=== PATIENT | female | born 1940 | race Caucasian/White ===

== ENCOUNTER 2018-02-11 06:49 | Inpatient (IN) | payer OTHER ==
[2018-02-11] MEDS ORDERED: GABAPENTIN 300 MG CAP PO ONE (07:22)
[2018-02-11] MEDS ORDERED: ceFAZolin 2 GM/DEXTROSE 100 ML IV ONE (07:22)
[2018-02-11] MEDS ORDERED: ACETAMINOPHEN 500 MG TAB PO ONE (07:22)
[2018-02-11] MEDS ORDERED: LIDOCAINE 1% 2 ML INJ ID PRN (07:23)
[2018-02-11] MEDS ORDERED: LR 1,000 ML IV ONE (07:23)
[2018-02-11] MEDS ORDERED: THROMBIN (BOVINE) 5,000 UNIT VIAL TP ONE (07:24)
[2018-02-11] MEDS ORDERED: CHLORHEXIDINE GLUC HIBICLENS 118 ML BTL TP ONE (07:24)
[2018-02-11] MEDS ORDERED: BUPIVACAINE 0.25% 30 ML SDV ONE (07:24)
[2018-02-11] MEDS ORDERED: EPINEPHrine 1 MG/ML INJ ONE (07:25)
[2018-02-11] MEDS ORDERED: BACITRACIN 50,000 UNITS/10 ML SYR IRR ONE ×2 (07:25→11:03)
--- NOTE | 2018-02-11 08:06 | PDANEPAE ---
ANE Past Medical History - Cardiovascular History Hx Hypertension: Yes Hx Arrhythmias: No Hx Chest Pain: No Hx Coronary Artery / Peripheral Vascular Disease: No Hx CHF / Valvular Disease: No Hx Palpitations: No - Pulmonary History Hx COPD: Yes Hx Asthma/Reactive Airway Disease: No Hx Recent Upper Respiratory Infection: No Hx Oxygen in Use at Home: No Hx Sleep Apnea: Yes Sleep Apnea Screening Result - Last Documented: Positive Pulmonary History Comment: alli positive uses cpap- instructed pt to bring to DOS - Neurologic History Hx Cerebrovascular Accident: No Hx Seizures: No Hx Dementia: No Neurologic History Comment: pinched nerve with numbness and tingling to bilateral arms. 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 bloating. using digestive enzyme - Other Health History Other Health History: wears glasses. arthritis. tinnitus daily. dental implants. bruises easily - Chronic Pain History Chronic Pain: Yes (entire spine) - Surgical History Prior Surgeries: right FLORA. bilateral bunionectomy. removal of mortons neuroma ANE Review of Systems Review of Systems: - Exercise capacity METS (RN): 4 METS ANE Patient History - Allergies Allergies/Adverse Reactions: Penicillins Allergy (Verified 02/06/18 12:14) Diarrhea - Home Medications Home Medications: Aspirin EC [Aspirin EC 81 mg (*)] 81 mg PO DAILY 02/06/18 [Last Taken 02/04/18] Atorvastatin Calcium [Lipitor 10 mg (*)] 10 mg PO HS 02/06/18 [Last Taken ] Cyclobenzaprine [Flexeril 10 MG (*)] 20 mg PO HS PRN 02/06/18 [Last Taken Unknown] Metoprolol Succinate Xr [Toprol Xl 100 mg (*)] 100 mg PO DAILY 02/06/18 [Last Taken 02/11/18] Sertraline HCl [Zoloft 100mg (*)] 100 mg PO DAILY 02/06/18 [Last Taken 02/11/18] Triamterene/Hydrochlorothiazid [Triamterene-Hctz 37.5-25 mg Tb] 1 each PO BID [Last Taken 02/10/18] Zolpidem Tartrate [Ambien] 10 mg PO HS 02/06/18 [Last Taken 02/10/18] amLODIPine BESYLATE [Norvasc 10 mg (*)] 10 mg PO HS 02/06/18 [Last Taken ] - Anes Hx Anes Hx: no prior problems - Smoking Hx Smoking Status: Former smoker - Alcohol Use Alcohol Use: Heavy - Family Anes Hx Family Anes Hx: neg - N/A Family Hx Anesthesia Complications: none ANE Labs/Vital Signs - Vital Signs Height: 165.1 cm Weight: 70.307 kg ANE Physical Exam - Airway Neck exam: decreased ROM Mallampati Score: Class 3 Mouth exam: normal dental/mouth exam - Pulmonary Pulmonary: no respiratory distress, no rales or rhonchi, clear to auscultation - Cardiovascular Cardiovascular: regular rate and rhythym, no murmur, rub, or gallop - ASA Status ASA Status: II ANE Anesthesia Plan Anesthesia Plan: general endotracheal anesthesia (EMG ETT) Total IV Anesthesia: No
--- NOTE | 2018-02-11 08:43 | PDHPUP ---
History & Physical Update H&P update statement: This history and physical update is based on an assessment of the patient which was completed after admission or registration (within 24 hours), but prior to the surgery/procedure. H&P update: H&P reviewed & patient examined, no change in patient's condition since H&P completed
[2018-02-11] MEDS ORDERED: fentaNYL 100 MCG/2 ML INJ ONE ×2 (08:51→13:08)
[2018-02-11] MEDS ORDERED: REMIFENTANIL HCL 1 MG VIAL ONE ×2 (08:51→11:22)
[2018-02-11] MEDS ORDERED: PROPOFOL/EMULSION 500 MG/50 ML BOTTLE IV ONE ×2 (08:51→11:22)
[2018-02-11] MEDS ORDERED: LIDOCAINE 2% 5 ML SDV ONE (08:54)
[2018-02-11] MEDS ORDERED: DEXAMETHASONE 4 MG/ML VIAL ONE (08:55)
[2018-02-11] MEDS ORDERED: ROCURONIUM 50 MG/5 ML VIAL ONE (08:55)
[2018-02-11] MEDS ORDERED: SUCCINYLCHOLINE CHLORIDE 200 MG/10 ML SYR IVP ONE (08:55)
[2018-02-11] MEDS ORDERED: ONDANSETRON 4 MG/2 ML VIAL ONE ×2 (08:55→14:21)
[2018-02-11] MEDS ORDERED: GLYCOPYRROLATE 0.2 MG/1 ML VIAL ONE ×2 (09:21)
[2018-02-11] MEDS ORDERED: LABETALOL HCL 5 MG/ML 20 ML MDV IVP PRN (09:52)
[2018-02-11] MEDS ORDERED: oxyCODONE IR 5 MG TAB PO PRN (09:52)
[2018-02-11] MEDS ORDERED: NALOXONE HCL 0.4 MG/ML INJ IVP PRN (09:52)
[2018-02-11] MEDS ORDERED: ACETAMINOPHEN 500 MG TAB PO PRN (09:52)
[2018-02-11] MEDS ORDERED: ONDANSETRON 4 MG/2 ML VIAL IVP PRN ×2 (09:52→13:08)
[2018-02-11] MEDS ORDERED: LR 500 ML IV PRN (09:52)
[2018-02-11] MEDS ORDERED: HYDROCODONE/APAP 5/325 TAB PO PRN (09:52)
[2018-02-11] MEDS ORDERED: PHENYLEPHRINE HCL 100 MCG/ML SYR IVP PRN (09:52)
[2018-02-11] MEDS ORDERED: PROMETHAZINE HCL 25 MG/ML INJ IVP PRN ×2 (09:52→13:08)
[2018-02-11] MEDS ORDERED: DIAZEPAM 5 MG/ML 1 ML SYR ONE ×2 (12:52→13:43)
[2018-02-11] MEDS: DIAZEPAM 5 MG/ML 1 ML SYR IVP PRN ×4 (12:53→14:15)
[2018-02-11] MEDS ORDERED: MAGNESIUM HYDROXIDE 30 ML UDCUP PO PRN (13:08)
[2018-02-11] MEDS ORDERED: BISACODYL 10 MG SUPP PR PRN (13:08)
[2018-02-11] MEDS ORDERED: POLYETHYLENE GLYCOL 3350 17 GM PKT PO PRN (13:08)
[2018-02-11] MEDS ORDERED: LACTULOSE 20 GM/30 ML UDCUP PO PRN (13:08)
[2018-02-11] MEDS ORDERED: ONDANSETRON DISINTEGRATING 4 MG TAB PO PRN (13:08)
[2018-02-11] MEDS ORDERED: diphenhydrAMINE 25 MG CAP PO PRN (13:08)
--- NOTE | 2018-02-11 13:08 | GOP ---
[f rep st] OPERATIVE REPORT DATE OF OPERATION: 02/11/2018 SURGEON: Jourdan Sparks MD NEUROSURGEON: Jourdan Sparks MD. CROP QUANTITATIVE GENETICIST: JUDY Latham. ANESTHESIA: General endotracheal. All neurophysiologic monitoring was stable throughout the case. PREOPERATIVE DIAGNOSIS: Severe C6 and C7 radiculopathies. POSTOPERATIVE DIAGNOSIS: Severe C6 and C7 radiculopathies. PROCEDURE PERFORMED: 1. C5 corpectomy. 2. C6-7 anterior cervical diskectomy and fusion. 3. Placement of interbody device, C4-6 and C6-7. 4. Anterior spinal fusion C4-C7. 5. Placement of anterior instrumentation, C4, C6, C7 with screws in the corpectomy cage. 6. Seymour of local autograft. 7. Use of the operative microscope. 8. Intraoperative fluoroscopy. 9. Intraoperative neurophysiologic monitoring, including somatosensory evoked potentials and motor e voked potentials. FINDINGS: Successful C4-C7 anterior spinal fusion. SPECIMENS: There were no specimens. ESTIMATED BLOOD LOSS: 50 cc. INDICATIONS: The patient is a 77-year-old woman who presented with deltoid, triceps, and some biceps weakness. MRI of the cervical spine reveals severe degenerative disease with large anterior osteoph ytes anteriorly and retrolisthesis of C5 with severe foraminal stenosis at C5-6 and C6-7. She has a focal kyphosis from C4 to C6. We discussed the options, including further conservative management, a s well as surgery, which would be a C5 corpectomy and C6-7 ACDF with C4-C7 anterior spinal fusion. S he agreed for surgery and we proceed electively today. DESCRIPTION OF PROCEDURE: After informed consent was obtained from the patient, the patient was brou ght to the operating room and a formal time-out was performed, identifying the patient by name, medic al record number, and date of . Preoperative antibiotics were given. The endotracheal tube was placed and general endotracheal anesthesia was smoothly induced. The patient's head was extended on to a horseshoe headrest and a shoulder roll was placed. All appropriate leads were placed for intrao perative neurophysiologic monitoring, including somatosensory evoked potentials and motor evoked pote ntials. Baseline potentials were normal. We then localized the level of the incision with a lateral x-ray and the neck was prepped and draped in the normal sterile fashion. 10 cc of 0.25% Marcaine wi th epinephrine was infiltrated in the skin for hemostasis. The skin incision was then made using a 10 blade and the subcutaneous tissues were dissected using mo nopolar electrocautery. The skin was undermined over the platysma giving larger longitudinal exposur e. The platysma was then opened in line with its fibers and the avascular plane between the sternocl eidomastoid and the midline structures was carefully dissected. The carotid artery was quite medial and this was freed up so as to have it move lateral giving access to the anterior spinal space. The prevertebral fascia was opened. The nearest disk space was marked and a lateral radiograph confirmed the C5-C6 disk space. Osteophytes at C5-6 and C6-7 were quite large and the soft tissues were caref ully taken down from the osteophytes. The osteophytes were removed using Leksell rongeurs, and the C 4-5, C5-6 and C6-7 disk spaces were completely localized to the lateral extent of the uncovertebral j oints. At this point, the self-retaining retractors was placed at C4 under the longus colli muscles and Casp ar distraction was placed from C4-C6. The operative microscope was then brought on the field and the remainder of the procedure was performed under high-power magnification. We began with diskectomy at C4-5 and the disk was completely removed and bilateral foraminotomies wer e performed. The disk space at C5-6 was completely collapsed, but the high-speed drill was then used to drill down through the disk space to the posterior longitudinal ligament. The Leksell rongeurs a nd the high-speed drill was then used to remove the C5 vertebral body completely from pedicle to pedi jono performing a complete corpectomy at this level. The Kerrison punches were used to finish the pos terior aspect, removing the posterior longitudinal ligament, completely decompressing the central can al. At the C5-C6 disk space, the posterior osteophyte of C5 had slipped behind C6, which was causing severe compression in that area. This was carefully removed, as was the further disk material, whic h was beneath the C6 vertebral body and wide foraminotomies were performed at this level, completely decompressing the nerves. Once this was complete, the wound was copiously irrigated using bacitracin irrigation. Some Gelfoam slurry was placed in the corpectomy space for hemostasis. The space was then sized for a 22 mm x 14 mm x 11 mm Medtronic anatomic PTC cage and the cage was bhatia lt appropriately and packed with the locally harvested autograft from the C5 vertebral body. The end plates were then drilled parallel and the cage was placed into the space between C4 and C6. Lateral x-ray confirmed good placement and the motor evoked potentials, somatosensory evoked potentials remai jenna stable. We then removed the [place] pin from C4 and replaced it into C7. The anterior osteophyte s were again large and were carefully drilled down. This disk space was completely obliterated and t here was virtually no disk material within. The high-speed drill was used to carefully follow down t he disk space, and as we opened this area, we were able to distract up to about 6 mm and open the spa ce further. As we approached the posterior vertebral body, the osteophytes were drilled down. The p osterior longitudinal ligament was opened and a wide opening of the posterior longitudinal ligament i nto both foramen was completely performed with wide foraminotomies. Endplates were then drilled down in parallel and this disk space was sized for a 7 x 14 x 11 mm Medtronic Anatomic PTC cage, which wa s packed with the locally harvested autograft. This was then placed into the interspace and the late ral x-ray confirmed good placement. The osteophytes were then completely drilled flat, especially on the C6 vertebral body, which was projecting somewhat forward. The anterior surface was then sized f or a 51 mm Medtronic Zevo plate, which was secured to the C4 and C7 vertebral bodies using 3.5 x 15 m m screws. Again, AP and lateral x-rays confirmed good placement and the plate was secured to the C6 vertebral body with 3.5 x 13 mm titanium screws. A single slot screw was placed through the plate in to the corpectomy cage to keep it from moving at all. All the locking plates were closed, keeping th e screws in place. AP and lateral final x-rays confirmed excellent placement of all the hardware. At this point, again the wound was copiously irrigated using bacitracin irrigation. All bleeding was controlled with bipolar electrocautery. A 10-Citizen Of [place] silicone drain was placed in the prevertebral s pace. The platysma was closed using interrupted 3-0 Vicryl. The deep dermis was closed using interr upted 3-0 Vicryl, and the skin was closed using Dermabond. The patient was awakened in the operating room. She was transferred to the PACU in stable condition. There were no operative complications. I was scrubbed and present for the entire procedure. All s ponge and needle counts were correct at the end of the case. FLUIDS/URINE OUTPUT: Per the anesthesia record. DRAINS: Prevertebral ASHLY. /[id number]/MODL
--- NOTE | 2018-02-11 13:08 | POSTOPPROG ---
Post Op Note Date of Operation: 02/11/18 Surgeon: Jourdan Sparks B2B Sales Professional: Altagracia Malik PA-C Anesthesia: GET(General Endotracheal) Pre-op Diagnosis: Cervical stenosis with myelopathy Post-op Diagnosis: same Procedure: C5 corpectomy, C6/7 ACDF, C4-7 Anterior fusion Inf/Abcess present in the surg proc area at time of surgery?: No Depth: Organ Space EBL: 50 Complications: None observed Drains: Stuart Marcum (To full suction) SOAP Progress Note Assessment/Plan: Assessment: Plan: 02/11/18 13:03 S:Patient in PACU. Stable and waking up still. O: NAD, VSS PERRL, EOMI Following commands Soft collar in place Neck soft, supple without induration BUE/BLE 5/5 Incision c/d/i- dermabond ASHLY X 1- TO full suction A: 77 yo female sp C5 corpectomy, C6/7 ACDF, C4-7 anterior fusion for cervical stenosis with myelopathy P: -To med/surg -Optimize pain management -Soft collar for now, will fit with hard cervical collar later today to be worn at all times except to shower -Postop x-rays in am -ASHLY X 1- to full suction -PT/OT/ETL PROGRAMMER- soft foods!! -DVT: TEDs , SCDs, Lovenox POD #1 -Call NS with any questions or concerns Objective: Vital Signs Temp Pulse Resp BP Pulse Ox 36.8 C 53 L 5 L 129/71 H 98 02/11/18 12:41 02/11/18 07:43 02/11/18 12:51 02/11/18 12:51 02/11/18 12:51
[2018-02-11] MEDS: fentaNYL 100 MCG/2 ML INJ IVP PRN ×2 (13:12→13:23)
[2018-02-11] MEDS ORDERED: CYCLOBENZAPRINE 10 MG TAB PO PRN (13:15)
[2018-02-11] MEDS ORDERED: NS 1,000 ML IV SCH (13:15)
--- NOTE | 2018-02-11 13:57 | POSTANESTH ---
Post Anesthetic Evaluation Cardiovascular Status: Normal, Stable Respiratory Status: Normal, Stable Level of Consciousness/Mental Status: Can Participate in Eval Pain Control: Adequate, Prn Tx Ordered Nausea/Vomiting Control: Adequate, Prn Tx Ordered Complications Possibly Related to Anesthesia: None Noted
[2018-02-11] MEDS ORDERED: oxyCODONE IR 5 MG TAB ONE (14:21)
[2018-02-11] MEDS ORDERED: METHOCARBAMOL 1,000 MG in NS 50 ML IV ONE (15:15)
--- NOTE | 2018-02-11 15:16 | PDMN ---
Medical Necessity Medical necessity: MCG: S320, Cervical Fusion, Anterior, A-1: Inpatient for the followin77 year old s/p C4-7 Anterior fusion, C5 corpectomy, C6/7 ACDF.
[2018-02-11] MEDS: ACETAMINOPHEN 500 MG TAB PO SCH ×2 (15:38→20:58)
[2018-02-11] MEDS: ceFAZolin 2 GM/DEXTROSE 100 ML IV SCH (17:56)
[2018-02-11] MEDS: POLYETHYLENE GLYCOL 3350 17 GM PKT PO SCH ×2 (17:57→21:01)
[2018-02-11] MEDS: oxyCODONE IR 5 MG TAB PO PRN ×2 (17:57→21:00)
[2018-02-11] MEDS ORDERED: ATORVASTATIN CALCIUM 10 MG TAB PO SCH (21:00)
[2018-02-11] MEDS: SENNOSIDES/DOCUSATE SODIUM TAB PO SCH (21:02)
[2018-02-11] MEDS: TRIAMTERENE/HCTZ 37.5/25 1 EACH TAB PO SCH (21:03)
[2018-02-11] MEDS: DIAZEPAM 5 MG TAB PO PRN (21:22)
[2018-02-12] MEDS: ceFAZolin 2 GM/DEXTROSE 100 ML IV SCH (00:44)
[2018-02-12] MEDS: DIAZEPAM 5 MG TAB PO PRN ×2 (05:22→11:32)
[2018-02-12] MEDS: oxyCODONE IR 5 MG TAB PO PRN ×2 (05:22→10:50)
[2018-02-12] MEDS: ACETAMINOPHEN 500 MG TAB PO SCH (05:23)
--- NOTE | 2018-02-12 06:20 | NEUSURGPN ---
Assessment/Plan: A: 77 yo female sp C5 corpectomy, C6/7 ACDF, C4-7 anterior fusion for cervical stenosis with myelopathy POD1 P: -Optimize pain management -Hard cervical collar later today to be worn at all times except to shower -Postop x-rays pending -ASHLY X 1- to full suction -PT/OT/LUNCHROOM FOOD SERVICE SUPERVISOR- soft foods!! -DVT: TEDs , SCDs, Lovenox POD #1 -Call NS with any questions or concerns Subjective: Denies any new numbness or weakness, pain tolerable with medications. Objective: NAD, Following commands Neck soft, supple BUE/BLE 5/5 Incision c/d/i- ASHLY serosanguineous Catheter Insertion Date: 02/11/18 - Physician Discussed Patient with : [facility] Neuro[facility] Physical Exam - Vitals, I&O, Labs I and O 02/11/18 02/12/18 02/13/18 05:59 05:59 05:59 Intake Total 3270 Output Total 1940 Balance 1330 Weight 70.3 kg Intake: Oral (ml) 1150 IV Intake (ml) 2120 Output: Urine (ml) 1825 Catheter 575 Toilet 1250 Estimated Blood Loss (ml) 50 ASHLY Drain Output (ml) 65 #1 Neck Stuart Marcum 65 Other: Number of Voids Catheter 1 Toilet 1 Vital Signs Temp Pulse Resp BP Pulse Ox 36.8 C 57 L 16 109/59 L 95 02/12/18 04:53 02/12/18 04:53 02/12/18 04:53 02/12/18 04:53 02/12/18 04:53 ICD10 Worksheet Patient Problems: Problems Problem Status Onset Cervical stenosis of spine Acute Cervical stenosis of spine Acute - ICD10 Problem Qualifiers (1) Cervical stenosis of spine (2) Cervical stenosis of spine
[2018-02-12 07:21] VITALS: BP 99/54
[2018-02-12] MEDS: SENNOSIDES/DOCUSATE SODIUM TAB PO SCH (08:09)
[2018-02-12] MEDS: POLYETHYLENE GLYCOL 3350 17 GM PKT PO SCH (08:09)
[2018-02-12] MEDS: TRIAMTERENE/HCTZ 37.5/25 1 EACH TAB PO SCH (08:50)
[2018-02-12] MEDS ORDERED: SERTRALINE HCL 100 MG TAB PO SCH (09:00)
[2018-02-12] MEDS ORDERED: METOPROLOL SUCCINATE XR 50 MG TAB PO SCH (09:00)
[2018-02-12] MEDS ORDERED: ENOXAPARIN 40 MG/0.4 ML SYR SC SCH (09:00)
--- NOTE | 2018-02-12 12:20 | ASMTLACE ---
[place] Length of stay for Answers: 1 day current admission Acuity / Level of Answers: Yes Care: Did the patient have an inpatient admission? # of Emergency department Answers: 0 visits in the last 6 months Score: 4 Date Signed: 02/12/2018 12:20 PM Electronically Signed By:SEAN Penn
--- NOTE | 2018-02-12 15:29 | ASDISCHSUM ---
Discharge Information Plan Status:Home with No Needs Medically Cleared to Leave: Discharge Date:02/12/2018 02:13 PM CM D/C Disposition:Home, Routine, Self-Care ADT D/C Disposition:Home, Routine, Self-Care Projected Discharge Date:02/12/2018 02:13 PM Transportation at D/C: Discharge Delay Reason: Follow-Up Date:02/12/2018 02:13 PM Discharge Slot: Final Diagnosis: Placement Information Patient Contact Information Contact Name:JR Relationship:Rainer Address: Work Phone: [facility] Phone: State/Zip Code: Email: Financial Information Financial Class:Medicare Advantage Plans Primary Plan Desc:ELISHA FRIAS MEDICARE Primary Plan Number:[id number] Secondary Plan Desc: Secondary Plan Number: Assessment Information LACE LACE Length of stay for Answers: 1 day current admission Acuity / Level of Answers: Yes Care: Did the patient have an inpatient admission? # of Emergency department Answers: 0 visits in the last 6 months Score: 4 Date Signed: 02/12/2018 12:20 PM Electronically Signed By:SEAN Penn [facility] CM Progress Note CM Note CM Note Notes: OT/IMMIGRATION [place] rec home, PT rec home/outpatient. Pt medically stable for d/c, no CM d/c needs identified. Date Signed: 02/12/2018 03:29 PM Electronically Signed By:SEAN Penn Intervention Information
--- NOTE | 2018-02-12 15:29 | ASMTCMCOM ---
CM Note CM Note Notes: OT/INSTRUMENT AND ELECTRICAL TECHNICIAN rec home, PT rec home/outpatient. Pt medically stable for d/c, no CM d/c needs identified. Date Signed: 02/12/2018 03:29 PM Electronically Signed By:SEAN Penn
== END 2018-02-12 14:13 | disposition home or self-care (01) | DRG 472 ==
LOC: F3N 06:49
PROVIDERS: ADMIT Neurological Surgery; ATTEND Neurological Surgery
DX: M48.02 Spinal stenosis, cervical region (principal); M50.00 Cervical disc disorder with myelopathy, unspecified cervical region; M50.30 Other cervical disc degeneration, unspecified cervical region; M54.12 Radiculopathy, cervical region; I10 Essential (primary) hypertension; G47.33 Obstructive sleep apnea (adult) (pediatric)
CPT/HCPCS: 92610-GN; 97116-GP; 97161-GP; 97165-GO; 97535-GO; C1713; G8987-GO-CI; G8988-GO-CI; G8989-GO-CI; J0171; J0330; J0690; J1100; J1650; J2405; J2704; J2800; J3010; J3360

== ENCOUNTER → 2018-05-10 | Outpatient (CLI) | payer OTHER | LOC: CIMAGING 11:16 | PROVIDERS: ATTEND Internal Medicine | DX: J44.9 Chronic obstructive pulmonary disease, unspecified (principal); G47.33 Obstructive sleep apnea (adult) (pediatric); Z87.891 Personal history of nicotine dependence; Z85.820 Personal history of malignant melanoma of skin | CPT/HCPCS: 71250-PO ==

== ENCOUNTER 2018-07-09 10:04 | Inpatient (IN) | payer OTHER ==
[2018-07-15] MEDS ORDERED: ceFAZolin 2 GM/DEXTROSE 100 ML IV ONE (08:22)
[2018-07-15] MEDS ORDERED: ACETAMINOPHEN 500 MG TAB PO ONE (08:22)
[2018-07-15] MEDS ORDERED: LR 1,000 ML IV ONE (08:23)
[2018-07-15] MEDS ORDERED: GADOBUTROL 10 ML VIAL IVP ONE (08:37)
[2018-07-15 09:17] LABS: PLATELET COUNT 226 10^3/uL (150-400)
[2018-07-15] MEDS ORDERED: BUPIVACAINE/EPI 0.25% 30 ML SDV ONE (10:39)
[2018-07-15] MEDS ORDERED: GENTAMICIN SULFATE 80 MG/2 ML VIAL ONE (10:39)
[2018-07-15] MEDS ORDERED: CHLORHEXIDINE GLUC HIBICLENS 118 ML BTL TP ONE (10:39)
[2018-07-15] MEDS ORDERED: MANNITOL 20% 100 GM/500 ML BAG IV ONE (10:41)
[2018-07-15] MEDS ORDERED: SURGIFLO MATRIX KIT WITH THROMBIN 8 ML TP ONE (10:41)
[2018-07-15] MEDS ORDERED: THROMBIN (BOVINE) 5,000 UNIT VIAL TP ONE ×2 (10:41→15:11)
[2018-07-15] MEDS ORDERED: BACITRACIN ZINC 14.2 GM OINTTUBE TP ONE ×2 (10:41→17:06)
[2018-07-15] MEDS ORDERED: AVITENE POWDER 1 GM JAR TP ONE (10:46)
[2018-07-15] MEDS ORDERED: BISACODYL 10 MG SUPP PR PRN (14:35)
[2018-07-15] MEDS ORDERED: ONDANSETRON DISINTEGRATING 4 MG TAB PO PRN (14:35)
[2018-07-15] MEDS ORDERED: MAGNESIUM HYDROXIDE 30 ML UDCUP PO PRN (14:35)
[2018-07-15] MEDS ORDERED: ONDANSETRON 4 MG/2 ML VIAL IVP PRN ×2 (14:35→15:50)
[2018-07-15] MEDS ORDERED: LACTULOSE 20 GM/30 ML UDCUP PO PRN (14:35)
[2018-07-15] MEDS ORDERED: POLYETHYLENE GLYCOL 3350 17 GM PKT PO PRN (14:35)
[2018-07-15] MEDS ORDERED: HYDROmorphONE/DILAUDID 1 MG/ML INJ IVP PRN (14:35)
[2018-07-15] MEDS ORDERED: ACETAMINOPHEN 325 MG TAB PO PRN (14:35)
[2018-07-15] MEDS ORDERED: METHOCARBAMOL 750 MG TAB PO PRN (14:35)
[2018-07-15] MEDS ORDERED: fentaNYL 100 MCG/2 ML INJ ONE ×3 (14:43→17:38)
[2018-07-15] MEDS ORDERED: ROCURONIUM 50 MG/5 ML VIAL ONE (14:43)
[2018-07-15] MEDS ORDERED: PROPOFOL 200 MG/20 ML VIAL ONE (14:43)
[2018-07-15] MEDS ORDERED: LIDOCAINE 2% 100 MG/5 ML SYR ONE (14:43)
[2018-07-15] MEDS ORDERED: *MD ORDERING ONLY-DEXAMETHASONE TAPER PO SCH (14:45)
--- NOTE | 2018-07-15 14:45 | PDANEPAE ---
ANE Past Medical History - Cardiovascular History Hx Hypertension: Yes Hx Arrhythmias: No Hx Chest Pain: No Hx Coronary Artery / Peripheral Vascular Disease: No Hx CHF / Valvular Disease: No Hx Palpitations: No Cardiovascular History Comment: HYPERLIPIDEMIA. ADMITTED POST OP C SPINE SURG W /CHF - [facility]. RUNS LOW HEART RATE - Pulmonary History Hx COPD: Yes Hx Asthma/Reactive Airway Disease: No Hx Recent Upper Respiratory Infection: No Hx Oxygen in Use at Home: Yes O2 in Use at Home (L/minute): O2 2L NOC IN PROCESS OF OBTAINING PORT O2 TANK Hx Sleep Apnea: Yes Sleep Apnea Screening Result - Last Documented: Positive Pulmonary History Comment: alli positive uses cpap- instructed pt to bring to DOS. 02 SATS RUN LOW - Neurologic History Hx Cerebrovascular Accident: No Hx Seizures: No Hx Dementia: No Neurologic History Comment: SOME TINGLING SG HANDS ( CARPAL TUNNEL). 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 bloating. using digestive enzyme - Other Health History Other Health History: wears glasses. arthritis. tinnitus daily. dental implants. bruises easily - Chronic Pain History Chronic Pain: Yes (LOW GRADE BACK PAIN) - Surgical History Prior Surgeries: CERVICAL SPINE C4-7 & CORPECTOMY. right FLORA. bilateral bunionectomy. removal of mortons neuroma ANE Review of Systems Review of Systems: - Exercise capacity METS (RN): 5 METS ANE Patient History - Allergies Allergies/Adverse Reactions: No Known Allergies Allergy (Verified 07/08/18 13:17) - Home Medications Home Medications: Atorvastatin Calcium [Lipitor 10 mg (*)] 10 mg PO HS 02/06/18 [Last Taken ] amLODIPine BESYLATE [Norvasc 10 mg (*)] 10 mg PO HS 02/06/18 [Last Taken ] Metoprolol Succinate Xr [Toprol Xl 50 mg (*)] 50 mg PO DAILY 07/08/18 [Last Taken 07/15/18 06:45] Sertraline HCl [Zoloft 50mg (*)] 50 mg PO DAILY 07/08/18 [Last Taken 07/15/18 06 :45] Tiotropium Inhaler [Spiriva Inhaler] 1 inh IH DAILY 07/08/18 [Last Taken 06:45] Triamterene/Hctz 75/50 [Maxzide 75-50 mg Tab (*)] 1 tab PO DAILY 07/08/18 [Last Taken 07/14/18] Zolpidem Tartrate [Ambien 5MG (*)] 5 mg PO HS 07/08/18 [Last Taken 07/14/18] Cyclobenzaprine [Flexeril 10 MG (*)] 10 mg PO BID PRN 07/10/18 [Last Taken 07/14] Herbals/Supplements -Info Only 1 ea PO DAILY 07/10/18 [Last Taken Unknown] traZODone [traZODONE 50MG (*)] 50 mg PO HS 07/10/18 [Last Taken 07/13/18] - NPO status NPO Since - Liquids (Date): 07/15/18 NPO Since - Liquids (Time): 08:40 NPO Since - Solids (Date): 07/14/18 NPO Since - Solids (Time): 22:00 - Smoking Hx Smoking Status: Former smoker - Family Anes Hx Family Hx Anesthesia Complications: none ANE Labs/Vital Signs - Labs Result Diagrams: 07/15/18 08:58 07/15/18 08:58 - Vital Signs Blood Pressure: 144/81 Heart Rate: 62 Respiratory Rate: 18 O2 Sat (%): 94 Height: 162.56 cm Weight: 68.039 kg ANE Physical Exam - Airway Neck exam: decreased ROM Mallampati Score: Class 3 Mouth exam: normal dental/mouth exam - Pulmonary Pulmonary: no respiratory distress - Cardiovascular Cardiovascular: regular rate and rhythym - ASA Status ASA Status: III ANE Anesthesia Plan Anesthesia Plan: general endotracheal anesthesia
[2018-07-15] MEDS ORDERED: CYCLOBENZAPRINE 10 MG TAB PO PRN (14:48)
[2018-07-15] MEDS ORDERED: DEXAMETHASONE 4 MG/ML VIAL ONE ×3 (15:16)
[2018-07-15] MEDS ORDERED: NALOXONE HCL 0.4 MG/ML INJ IVP PRN ×2 (15:50→17:32)
[2018-07-15] MEDS ORDERED: ALBUTEROL 3 ML DEYVIAL IH PRN (15:50)
[2018-07-15] MEDS ORDERED: HYDROCODONE/APAP 5/325 TAB PO PRN (15:50)
--- NOTE | 2018-07-15 16:22 | PDMN ---
Medical Necessity Medical necessity: 77 yo sp craniotomy for tumor resection w/ stealth ( meningioma), MCG S410 craniotomy, supratentorial, MC IP only
[2018-07-15] MEDS ORDERED: SUGAMMADEX SODIUM 200 MG/2 ML VIAL IVP ONE (16:47)
--- NOTE | 2018-07-15 17:33 | POSTOPPROG ---
Post Op Note Date of Operation: 07/15/18 Surgeon: Jourdan Sparks Mattress Filling Machine Tender: JUDY Wadsworth Anesthesiologist: Rohit Anesthesia: GET(General Endotracheal) Pre-op Diagnosis: right para-saggital meningioma Post-op Diagnosis: same Indication: same Procedure: para-saggital crani for resection of meningioma Findings: see dictation Inf/Abcess present in the surg proc area at time of surgery?: No EBL: Minimal Total fluids administered: 300cc Complications: none
--- NOTE | 2018-07-15 17:33 | POSTANESTH ---
Post Anesthetic Evaluation Cardiovascular Status: Similar to Pre-Op Cond Respiratory Status: Similar to Pre-op Cond. Level of Consciousness/Mental Status: Mildly Sleepy, Arousable Pain Control: Adequate, Prn Tx Ordered Nausea/Vomiting Control: Adequate, Prn Tx Ordered Complications Possibly Related to Anesthesia: None Noted
--- NOTE | 2018-07-15 17:35 | PDCONSULT ---
Customer Experience Manager Note: NEUROSURGERY doing well, resting in PACU AAOx3, CNII-XII grossly normal full strength and sensation, no drift wound c/d/i POD#0 s/p right parasagittal craniotomy for resection of meningioma - doing well - 5 day decadron taper - MRI tomorrow - SBP 90-160 - likely d/c home in 1-2 days Clare
[2018-07-15] MEDS: fentaNYL 100 MCG/2 ML INJ IVP PRN ×3 (17:41→17:55)
--- NOTE | 2018-07-15 17:50 | GOP ---
DATE OF OPERATION: 07/15/2018 SURGEON: Jourdan Sparks MD NEUROSURGEON: Jourdan Sparks MD. HOBBER: JUDY Layton. ANESTHESIA: General endotracheal. PREOPERATIVE DIAGNOSIS: Right parasagittal meningioma. POSTOPERATIVE DIAGNOSIS: Right parasagittal meningioma. PROCEDURE PERFORMED: 1. Parasagittal craniotomy. 2. Microsurgical gross total resection of right parasagittal meningioma. 3. Use of Stealth stereotactic navigation for volumetric gross total resection of brain tumor. 4. Use of the operative microscope. FINDINGS: Successful resection of meningioma. SPECIMENS: Right frontal parasagittal meningioma. ESTIMATED BLOOD LOSS: 25 cc. INDICATIONS: This patient is a 77-year-old woman who had a fall and subsequent head CT. This mening ioma was incidentally found measuring about 2.5 x 2.5 cm in the parasagittal area on the right side. Given the tumor size, we discussed the options and ultimately decided on craniotomy for resection. She presents electively today for this procedure. DESCRIPTION OF PROCEDURE: After informed consent was obtained from the patient, the patient was brou ght to the operating room and was placed in a supine position on the operating table. A formal time- out was performed, identifying the patient by name, medical record number, and date of . Preope rative antibiotics were given. The endotracheal tube was placed, and general endotracheal anesthesia was smoothly induced. The patient's head was placed in the Ray pins and kept in a neutral posi tion. The Stealth was registered to the scalp and checked for accuracy using known surface landmarks . The Stealth was then used to plan a transverse incision across the midline over the middle area of the tumor. At this point, the hair was clipped. The head was prepped and draped in the normal ster ile fashion. 10 cc of 4% Marcaine with epinephrine was infiltrated in the skin for hemostasis. The skin incision was then made using a 10 blade. The subcutaneous tissues were dissected using monopola r electrocautery. Sang clips were placed for hemostasis. A self-retaining retractor was placed. T he sagittal suture was well visualized, and the Stealth was used to localize the sagittal sinus down the midline. Four bur holes were created, two on either side of the sagittal sinus and anterior and posterior to the tumor. The dura was then stripped from beneath, especially across the area of the s agittal sinus, and the craniotome was used to turn a 4 cm craniotomy flap spanning the sagittal sinus . The sinus was covered with Gelfoam, and all bleeding was controlled with bipolar electrocautery. The dura was then opened on the right side in a curvilinear fashion with its base toward the sagittal sinus. This allowed visualization of the tumor, which had actually eroded through the dura in a sma ll place medially. Once the tumor was exposed, the operative microscope was brought on the field, an d the remainder of the procedure was performed under high-power magnification. We began by dissectin g the arachnoid around the periphery of the tumor, establishing a plane between the tumor capsule and the surrounding normal brain. Then medially, we were able to disconnect the attachments of the tumo r from the area of the sagittal sinus and the falx, and this was coagulated using bipolar electrocaut christin. This completely devascularized the tumor. We then debulked internally using the ultrasonic asp irator. After significant debulking, we were able to collapse the capsule of the tumor on itself and continue the arachnoid dissection around the tumor capsule. A few small veins draining the tumor we re divided, and this allowed complete mobilization of the tumor which was removed en bloc at this poi nt. The area of attachment to the sagittal sinus was inspected and was coagulated using bipolar elec trocautery. No further bleeding was visualized. The tumor bed was carefully visualized, and tumor b ed was covered using Surgicel. No further bleeding was visualized at this time. The dura was then t acked closed using interrupted 4-0 Nurolon. The dural surface was covered using Gelfoam. The cranio anamaria flap was plated back in place using Synthes titanium plates and screws. The wound was copiously irrigated using bacitracin irrigation. The galea was closed using interrupted 2-0 Vicryl. The skin was closed using a running 4-0 Monocryl. The hair was washed, and bacitracin was placed over the wo und. The patient was then awakened in the operating room. She was extubated, transferred to the PAC U in stable condition. There were no operative complications. I was scrubbed and present for the en tire procedure. All sponge and needle counts were correct at the end of the case. FLUIDS: 300 of crystalloid. URINE OUTPUT: Per the anesthesia record. DRAINS: There were no drains. /[id number]/MODL
[2018-07-15] MEDS: FAMOTIDINE 20 MG TAB PO SCH ×2 (19:21→21:02)
[2018-07-15] MEDS: DEXAMETHASONE 4 MG TAB PO SCH (19:48)
[2018-07-15] MEDS: HYDROCODONE/APAP 10/325 TAB PO PRN (19:49)
[2018-07-15] MEDS: SENNOSIDES/DOCUSATE SODIUM TAB PO SCH (21:02)
[2018-07-15] MEDS: ATORVASTATIN CALCIUM 10 MG TAB PO SCH (21:02)
[2018-07-15] MEDS: traZODone 50 MG TAB PO SCH (23:04)
[2018-07-16] MEDS: DEXAMETHASONE 4 MG TAB PO SCH ×4 (01:30→20:38)
[2018-07-16] MEDS: HYDROCODONE/APAP 10/325 TAB PO PRN ×4 (01:34→23:21)
--- NOTE | 2018-07-16 07:31 | NEUSURGPN ---
Date of Surgery: 07/15/18 Post Op Day: 1 Assessment/Plan: Assessment: 77 yo female that is POD #1 s/p right parasagittal craniotomy for resection of meningioma Plan: -s/p right sided craniotomy for tumor resection: doing ok this am. Pt with some left foot weakness-walking well -PT/OT/ST ordered -doing well -5 day decadron taper ordered per reports -MRI brain pending today -SBP 90-160 -pt seen and examined by Dr Sparks -call with any questions or concerns -pt understands and agrees -likely d/c home in 1-2 days Subjective: Awake and alert. Talking on cell phone. Mild CHO. No neck/chest/abd or gu complaints. No f/c/n/v/d. Objective: AAOx3, PERRLA/EOMI no droop CNII-XII grossly normal full strength and sensation, no drift wound c/d/i Neuro Check Frequency: per routine Urinary Catheter in Place: No Catheter Insertion Date: 07/15/18 - Physician Discussed Patient with : Clare Patient Seen by : Clare Neurosurgery Physical Exam - Vitals, I&O, Labs I and O 07/15/18 07/16/18 07/17/18 05:59 05:59 05:59 Intake Total 1800 Output Total 1350 Balance 450 Weight 68.039 kg Intake: Oral (ml) 1300 IV Intake (ml) 450 IV Infused (ml) 50 ceFAZolin 1 GM/DEXTROSE 50 50 ml @ 200 mls/hr IV Q8H [facility] Rx#:[id number] Output: Urine (ml) 1325 Catheter 1325 Estimated Blood Loss (ml) 25 Vital Signs Temp Pulse Resp BP Pulse Ox 37.4 C 74 14 103/44 L 94 07/15/18 19:00 07/16/18 06:00 07/16/18 06:00 07/16/18 06:00 07/16/18 06:00 Laboratory Results 07/15/18 08:58 07/15/18 08:58 ICD10 Worksheet Patient Problems: Problems Problem Status Onset Cervical stenosis of spine Acute Cervical stenosis of spine Acute
[2018-07-16] MEDS: TIOTROPIUM INHALER 18 MCG/DOSE 5 DOSE/MDI IH SCH (09:02)
[2018-07-16] MEDS ORDERED: GADOBUTROL 10 ML VIAL IVP ONE (09:35)
[2018-07-16] MEDS: SERTRALINE HCL 50 MG TAB PO SCH (10:49)
[2018-07-16] MEDS: FAMOTIDINE 20 MG TAB PO SCH ×2 (10:49→20:39)
[2018-07-16] MEDS: METOPROLOL SUCCINATE XR 50 MG TAB PO SCH (10:49)
[2018-07-16] MEDS: SENNOSIDES/DOCUSATE SODIUM TAB PO SCH ×2 (10:49→20:40)
[2018-07-16] MEDS: TRIAMTERENE/HCTZ 75/50 1 EACH TAB PO SCH (10:50)
[2018-07-16] MEDS ORDERED: ZOLPIDEM TARTRATE 5 MG TAB PO PRN ×3 (20:19→23:15)
[2018-07-16] MEDS: ATORVASTATIN CALCIUM 10 MG TAB PO SCH (20:39)
[2018-07-16] MEDS: traZODone 50 MG TAB PO SCH (20:39)
[2018-07-17] MEDS: HYDROCODONE/APAP 10/325 TAB PO PRN ×2 (05:38→15:00)
--- NOTE | 2018-07-17 08:10 | NEUSURGPN ---
Assessment/Plan: Assessment: 77 yo female that is POD #2 s/p right parasagittal craniotomy for resection of meningioma Plan: -s/p right sided craniotomy for tumor resection: doing ok this am. Pt with some left foot weakness-walking well. Has AFO -PT/OT/ST ordered -doing well -5 day decadron taper ordered -MRI brain shows post op changes, reviewed by Dr Sparks as well -SBP 90-160 -Shower and wash hair today -Plan for dc to home later today if continues to do well -D/w Dr Sparks -Call NS with any neuro changes or questions Subjective: Pt resting in bed, slept well. Has continued left foot weakness. Overall doing well and happy with results of surgery. Objective: AAOx3 NAD VSS MAEx4 Motor 5/5 BUE, BLE with exception of DF on left 3/5 Incision cdi +LT Urinary Catheter in Place: No Catheter Insertion Date: 07/15/18 - Physician Discussed Patient with : Clare Neurosurgery Physical Exam - Vitals, I&O, Labs I and O 07/16/18 07/17/18 07/18/18 05:59 05:59 05:59 Intake Total 1800 1100 Output Total 1350 Balance 450 1100 Weight 68.039 kg Intake: Oral (ml) 1300 1100 IV Intake (ml) 450 IV Infused (ml) 50 ceFAZolin 1 GM/DEXTROSE 50 50 ml @ 200 mls/hr IV Q8H [facility] Rx#:[id number] Output: Urine (ml) 1325 Catheter 1325 Estimated Blood Loss (ml) 25 Other: Intake Quantity Yes Sufficient Number of Voids Toilet 1 Vital Signs Temp Pulse Resp BP Pulse Ox 37.0 C 58 L 16 131/66 H 91 L 07/17/18 04:00 07/17/18 04:00 07/17/18 04:00 07/17/18 04:00 07/17/18 04:00 Laboratory Results 07/15/18 08:58 07/15/18 08:58 ICD10 Worksheet Patient Problems: Problems Problem Status Onset Cervical stenosis of spine Acute Cervical stenosis of spine Acute
[2018-07-17] MEDS: FAMOTIDINE 20 MG TAB PO SCH (09:23)
[2018-07-17] MEDS: DEXAMETHASONE 4 MG TAB PO SCH (09:23)
[2018-07-17] MEDS: METOPROLOL SUCCINATE XR 50 MG TAB PO SCH (09:23)
[2018-07-17] MEDS: SERTRALINE HCL 50 MG TAB PO SCH (09:23)
[2018-07-17] MEDS: SENNOSIDES/DOCUSATE SODIUM TAB PO SCH (09:23)
[2018-07-17] MEDS: TIOTROPIUM INHALER 18 MCG/DOSE 5 DOSE/MDI IH SCH (09:47)
[2018-07-17] MEDS: TRIAMTERENE/HCTZ 75/50 1 EACH TAB PO SCH (10:52)
[2018-07-17 11:58] VITALS: BP 122/59
--- NOTE | 2018-07-17 16:28 | ASMTLACE ---
LACE Length of stay for Answers: 3 days current admission Acuity / Level of Answers: Yes Care: Did the patient have an inpatient admission? Comorbidities - select Answers: Chronic pulmonary disease all that apply Opioid dependence / Chronic pain Other Notes: HTN; HLD # of Emergency department Answers: 0 visits in the last 6 months Score: 13 Date Signed: 07/17/2018 04:27 PM Electronically Signed By:SEAN Penn
[2018-07-17] MEDS ORDERED: DEXAMETHASONE 2 MG TAB PO SCH (21:30)
[2018-07-18] MEDS ORDERED: DEXAMETHASONE 2 MG TAB PO SCH (21:00)
== END 2018-07-17 16:34 | disposition home or self-care (01) | DRG 26 ==
LOC: F3N 07-15 08:19 → F2N 07-15 10:05 → F3N 07-16 16:29
PROVIDERS: ADMIT Neurological Surgery; ATTEND Neurological Surgery
PROC: 00B10ZZ Excision of Cerebral Meninges, Open Approach (ICD-10-PCS; principal; 2018-07-15 12:45)
DX: D32.0 Benign neoplasm of cerebral meninges (principal); I50.30 Unspecified diastolic (congestive) heart failure; J44.9 Chronic obstructive pulmonary disease, unspecified; G47.33 Obstructive sleep apnea (adult) (pediatric); I10 Essential (primary) hypertension; R00.1 Bradycardia, unspecified; R91.8 Other nonspecific abnormal finding of lung field; F32.9 Major depressive disorder, single episode, unspecified; G47.00 Insomnia, unspecified; E78.5 Hyperlipidemia, unspecified
CPT/HCPCS: 92507-GN; 92523-GN; 97110-GP; 97116-GP; 97161-GP; 97166-GO; 97530-GP; 97535-GO; A9585; C1713; G8978-GP-CJ; G8979-GP-CI; G8980-GP-CI; G8987-GO-CJ; G8988-GO-CI; J0690; J1100; J1170; J1580; J2001; J2270; J2405; J2704; J3010